=== PATIENT | female | born 1950 | race Caucasian/White ===

== ENCOUNTER → 2017-01-06 | Outpatient (REF) | payer BC, MEDICARE ==
[2017-01-06 09:45] LABS: MEAN CORPUSCULAR HEMOGLOBIN 29.9 pg (27.0-33.0); MEAN CORPUSCULAR HGB CONC 35.7 g/dl (32.0-36.5); MEAN CORPUSCULAR VOLUME 83.6 fl (80.0-96.0); RED CELL DISTRIBUTION WIDTH 13.9 % (11.5-14.5); WHITE BLOOD COUNT 7.3 K/mm3 (4.0-10.0)
[2017-01-06 10:21] LABS: ALBUMIN 3.8 GM/DL (3.2-5.2); ALBUMIN/GLOBULIN RATIO 0.93 (1.00-1.93); ALKALINE PHOSPHATASE 98 U/L (45-117); ALT/SGPT 32 U/L (12-78); ANION GAP 8 MEQ/L (8-16); AST/SGOT 16 U/L (15-37); BILIRUBIN,TOTAL 0.6 MG/DL (0.2-1.0); BLOOD UREA NITROGEN 21 MG/DL (7-18); CALCIUM LEVEL 9.4 MG/DL (8.8-10.2); CARBON DIOXIDE LEVEL 33 MEQ/L (21-32); CHLORIDE LEVEL 104 MEQ/L (98-107); CHOLESTEROL LEVEL 125 MG/DL (<200); CREATININE FOR GFR 0.82 MG/DL (0.55-1.02); FREE T4 1.16 NG/DL (0.76-1.46); GLOMERULAR FILTRATION RATE > 60.0 (>45); GLUCOSE, FASTING 98 MG/DL (80-110); POTASSIUM SERUM 3.6 MEQ/L (3.5-5.1); SODIUM LEVEL 145 MEQ/L (136-145); TOTAL PROTEIN 7.9 GM/DL (6.4-8.2); TRIGLYCERIDES LEVEL 83 MG/DL (<150)
== END ==
LOC: M SHH 09:26
PROVIDERS: ATTEND Family Medicine
DX: E03.9 Hypothyroidism, unspecified (principal); I10 Essential (primary) hypertension

== ENCOUNTER → 2018-03-23 | Outpatient (CLI) | payer MEDICARE | LOC: M ADAMS 08:27 | DX: M17.12 Unilateral primary osteoarthritis, left knee (principal) | CPT/HCPCS: 73564 ==

== ENCOUNTER 2024-11-22 08:39 | Inpatient (IN) | payer MEDICARE ==
[~2024-11-22] VITALS: Ht 170.2 cm; Wt 105.6 kg
[2024-11-22] VITALS (11 sets, daily range): BP systolic 144–214; BP diastolic 63–81; TEMP 97–97.7; O2SAT 92–98
[2024-11-22] MEDS ORDERED: ISOVUE-370 76% 100 ML VIAL As Ordered ONE (08:57)
[2024-11-22 09:22] LABS: BASO # 0.0 10^3/uL (0.0-0.2); BASO % 0.5 % (0.0-1.0); EOS # 0.1 10^3/uL (0.0-0.5); EOS % 1.2 % (0.0-3.0); LYMPH # 1.3 10^3/uL (1.5-5.0); LYMPH % 23.9 % (24.0-44.0); MONO # 0.3 10^3/uL (0.0-0.8); MONO % 5.2 % (2.0-8.0); NEUTROPHILS # 3.9 10^3/uL (1.5-8.5); NEUTROPHILS % 68.8 % (36.0-66.0); PLATELET COUNT, AUTOMATED 171 10^3/uL (150-450)
[2024-11-22 09:48] LABS: ALT/SGPT 32.0 U/L (7.0-40); AST/SGOT 28.0 U/L (<34); CALCIUM LEVEL 9.2 MG/DL (8.3-10.6); CARBON DIOXIDE LEVEL 27 MMOL/L (20-31); CHLORIDE LEVEL 100 MMOL/L (98-107); CK-MB VALUE MASS 2.2 NG/ML (<3.6); CPK CREATINE PHOSPHOKINASE 97 U/L (34-145); CREATININE FOR GFR 0.70 MG/DL (0.55-1.30); GLOMERULAR FILTRATION RATE > 90.0 (>39); MAGNESIUM LEVEL 1.9 MG/DL (1.8-2.4); MB/CK RELATIVE INDEX 2.26 (< OR =4); POTASSIUM SERUM 3.3 MMOL/L (3.5-5.1); SODIUM LEVEL 140 MMOL/L (136-145)
[2024-11-22 09:51] LABS: FREE T4 1.34 NG/DL (0.89-1.76)
[2024-11-22] MEDS ORDERED: EUTH100T PO (09:59)
[2024-11-22] MEDS ORDERED: METO1TAB33 PO (09:59)
[2024-11-22] MEDS ORDERED: HYDR-3490 PO (09:59)
[2024-11-22 10:23] LABS: INR 0.95
[2024-11-22] MEDS: POTASSIUM CHLORIDE 10MEQ SR TABLET PO ONE ×2 (10:46→18:53)
[2024-11-22 10:50] LABS: CK-MB VALUE MASS 2.4 NG/ML (<3.6); CPK CREATINE PHOSPHOKINASE 96.0 U/L (34-145); MB/CK RELATIVE INDEX 2.5 (< OR =4)
[2024-11-22] MEDS ORDERED: ASPIRIN 325 MG TAB PO ONE (11:25)
[2024-11-22] MEDS ORDERED: HOME MED LIST COMPLETE! XX SCH (11:40)
[2024-11-22] MEDS: ASPIRIN 81 MG ENTERIC TABLET PO ONE (12:13)
[2024-11-22] MEDS: CLOPIDOGREL 75 MG TAB PO ONE (12:14)
[2024-11-22] MEDS: hydroCHLOROthiazide 25 MG TAB PO ONE (12:14)
[2024-11-22] MEDS: METOPROLOL SUCC. 100 MG *XL* TAB PO ONE (12:14)
[2024-11-22] MEDS ORDERED: POTASSIUM CHLORIDE 10MEQ SR TABLET PO SCH (13:40)
[2024-11-22 13:44] LABS: KETONE, URINE AUTO RFX 1+ mg/dL (NEGATIVE); LEUKOCYTE ESTERASE UR AUTO RFX NEGATIVE (NEGATIVE); NITRITE, URINE AUTO RFX NEGATIVE (NEGATIVE); RBC, URINE AUTO RFX 0 /HPF (0-3); SQUAM EPITHELIAL CELL UR AURFX 1 /HPF (0-6); WBC, URINE AUTO RFX 1 /HPF (0-3)
[2024-11-22] MEDS: PANTOPRAZOLE 40MG TAB PO SCH (14:35)
[2024-11-22] MEDS: ONDANSETRON 4MG 2ML VIAL IV PRN (16:59)
[2024-11-22] MEDS: ATORVASTATIN 20 MG TAB PO SCH (20:46)
[2024-11-22] MEDS: TOPIRAMATE 25 MG TAB PO SCH (20:46)
[2024-11-23] VITALS (15 sets, daily range): BP systolic 136–141; BP diastolic 54–63; TEMP 97.4–98.2; O2SAT 92–98
[2024-11-23 05:36] LABS: CHOLESTEROL LEVEL 111.0 MG/DL (<200); CHOLESTEROL RISK RATIO 2.15 (<5); LDL CHOLESTEROL 43.6 MG/DL (<100); NON-HDL-C 59.4 MG/DL; TRIGLYCERIDES LEVEL 79.0 MG/DL (<150)
[2024-11-23 05:38] LABS: TOTAL 25(OH) VITAMIN D 38.2 NG/ML (20.0-100.0)
[2024-11-23 05:39] LABS: VITAMIN B12 LEVEL 514.0 PG/ML (211-911)
[2024-11-23 05:47] LABS: ESTIMATED AVERAGE GLUCOSE 108.0 MG/DL (60-110)
[2024-11-23] MEDS: ASPIRIN 81 MG CHEWABLE TABLET PO SCH (08:59)
[2024-11-23] MEDS: ENOXAPARIN 40 MG/0.4 ML SYRINGE (J1650 PER 10MG) SC SCH (09:00)
[2024-11-23] MEDS: CLOPIDOGREL 75 MG TAB PO SCH (09:00)
[2024-11-23] MEDS ORDERED: CLOP75TA2 PO (12:53)
[2024-11-23] MEDS ORDERED: ATOR1TAB21 PO (12:53)
[2024-11-23] MEDS ORDERED: TOPA1TAB PO (12:53)
[2024-11-23] MEDS ORDERED: ASPI81CH8 PO (12:53)
== END 2024-11-23 15:10 | disposition home or self-care (01) | DRG 69 ==
LOC: M ED 08:39 → EDBD 08:39 → M ED INP 13:28 → M PCU 16:18
PROVIDERS: ADMIT Student in an Organized Health Care Education/Training Program; ATTEND Student in an Organized Health Care Education/Training Program
PROC: B246ZZZ Ultrasonography of Right and Left Heart (ICD-10-PCS; principal; 2024-11-22)
DX: G45.9 Transient cerebral ischemic attack, unspecified (principal); I16.1 Hypertensive emergency; I10 Essential (primary) hypertension; H81.20 Vestibular neuronitis, unspecified ear; E03.9 Hypothyroidism, unspecified; R26.89 Other abnormalities of gait and mobility; E87.6 Hypokalemia; Z79.82 Long term (current) use of aspirin; Z79.890 Hormone replacement therapy; Z79.899 Other long term (current) drug therapy; Z88.5 Allergy status to narcotic agent